=== PATIENT | female | born 1980 | race Caucasian/White ===

== ENCOUNTER → 2023-10-18 08:45 | Outpatient (REF) | payer OTHER, SELFPAY | LOC: HWRAD 08:45 | PROVIDERS: ATTENDING PHYSICIAN Physician Assistant Medical; FAMILY PHYSICIAN Student in an Organized Health Care Education/Training Program; REFERRING PHYSICIAN Obstetrics & Gynecology | DX: R10.2 Pelvic and perineal pain (principal); R32 Unspecified urinary incontinence | CPT/HCPCS: 76830; 76856; 76857 ==

== ENCOUNTER → 2023-11-08 10:49 | Outpatient (REF) | payer OTHER, SELFPAY | LOC: MRI 3T 10:49 | PROVIDERS: ATTENDING PHYSICIAN Surgery; FAMILY PHYSICIAN Student in an Organized Health Care Education/Training Program | DX: R92.8 Other abnormal and inconclusive findings on diagnostic imaging of breast (principal) | CPT/HCPCS: 77049; A9585 ==

== ENCOUNTER → 2023-11-15 06:21 | Day surgery (SDC) | payer OTHER, SELFPAY | LOC: GI 06:21 | PROVIDERS: ATTENDING PHYSICIAN Internal Medicine Gastroenterology | DX: Z12.11 Encounter for screening for malignant neoplasm of colon (principal); Z86.010 Personal history of colon polyps; K57.30 Diverticulosis of large intestine without perforation or abscess without bleeding; D12.3 Benign neoplasm of transverse colon; D12.5 Benign neoplasm of sigmoid colon | CPT/HCPCS: 45385; 88305 ==

== ENCOUNTER → 2024-01-16 09:34 | Outpatient (REF) | payer OTHER, SELFPAY | LOC: HWWDC 09:34 | PROVIDERS: ATTENDING PHYSICIAN Surgery; FAMILY PHYSICIAN Student in an Organized Health Care Education/Training Program | DX: Z12.31 Encounter for screening mammogram for malignant neoplasm of breast (principal) | CPT/HCPCS: 77063; 77067 ==

== ENCOUNTER → 2024-02-14 08:59 | Outpatient (REF) | payer OTHER, SELFPAY | LOC: HWRAD 08:59 | PROVIDERS: ATTENDING PHYSICIAN Internal Medicine Endocrinology, Diabetes & Metabolism; FAMILY PHYSICIAN Student in an Organized Health Care Education/Training Program | DX: E04.2 Nontoxic multinodular goiter (principal) | CPT/HCPCS: 76536 ==

== ENCOUNTER → 2024-06-01 08:45 | Outpatient (REF) | payer OTHER, SELFPAY | LOC: HWRAD 08:45 | PROVIDERS: ATTENDING PHYSICIAN Internal Medicine Gastroenterology; FAMILY PHYSICIAN Student in an Organized Health Care Education/Training Program | DX: K59.09 Other constipation (principal) | CPT/HCPCS: 74018 ==

== ENCOUNTER → 2024-07-17 09:21 | Outpatient (REF) | payer OTHER, SELFPAY | LOC: WDC 09:21 | PROVIDERS: ATTENDING PHYSICIAN Surgery; FAMILY PHYSICIAN Student in an Organized Health Care Education/Training Program | DX: N64.4 Mastodynia (principal); R59.0 Localized enlarged lymph nodes | CPT/HCPCS: 76642 ==

== ENCOUNTER 2024-08-24 08:09 | Emergency (ER) | payer OTHER, SELFPAY ==
[2024-08-24 08:14] VITALS: BP 152/100
[2024-08-24 08:16] VITALS: BP 152/100
--- NOTE | 2024-08-24 08:28 | ED.GENMED ---
History of Present Illness
General
Chief Complaint: Abdominal Pain
Source: patient
Exam Limitations: none
Time Seen by Provider: 08/24/24 08:26
Nursing documentation reviewed up to this point in time: agreed with
History of Present Illness
History of Present Illness:
The patient is a pleasant 44-year-old female who comes in with complaints of gradual onset of left chest wall pain, right under her left breast. Patient reports that she noticed the pain 4 days ago but it has only gotten worse with time. Patient
reports that the pain becomes severe when she coughs and sneezes. She denies injury and rash. Patient reports that the pain seems to shoot up towards her left armpit. Patient reports that she was evaluated for this at urgent care and underwent an
x-ray, and was told that it may be due to constipation. Patient denies nausea and vomiting. She denies fever. She denies a history of PE and DVT.
Past History
Past History
ED Past Medical History: GERD, Hypothyroidism and Other (IBS)
ED Past Surgical History: None
Social History
Tobacco: Non-smoker
Alcohol: Occasional
Drug: None
Personal:
Living: with family
Employment: Employed
Family History
Family History: Other (Noncontributory)
Review of Systems
Review of Systems
Allergies reviewed?: Yes
All Other Systems: ROS reviewed and negative except as documented in HPI and ROS
Constitutional: Reports no symptoms
EENT: Reports no symptoms
Respiratory: Reports no symptoms
Cardiac: Reports chest pain (left sided chest wall pain)
ABD/GI: Reports abdominal pain
: Reports no symptoms
Musculoskeletal: Reports no symptoms
Skin: Reports no symptoms
Neurological: Reports no symptoms
Endocrine: Reports no symptoms
Hematologic/Lymphatic: Reports no symptoms
Psychiatric: Reports no symptoms
Phy Exam
Physical Exam
Physical Exam:
Physical Exam
General: no apparent distress, not acutely ill
Neck: supple. no meningeal signs. normal psoterior pharynx
Heart: s1/s2 regular rate and rhythm, no murmur. equal radial pulses.
Lungs: no acute respiratory distress. clear bilaterally
Abdomen: normal bowel sounds. Left upper quadrant tenderness, just under her left breast area. No pulsatile mass. No rebound or guarding
Neuro: alert and oriented. no focal neurological deficits
Skin: no rash
Psychiatric: well kept. interactive and cooperative
Extremities: no edema. no calf tenderness. negative homans. good distal pulses
Course
Orders/Labs/Results
Orders:
Orders
08/24/24 08:20
EKG [Electrocardiogram (*1)] Urgent
Reason for Study: Abdominal Pain
EKG- Treatment ONCE
08/24/24 08:39
Test Result ONCE
08/24/24 08:42
Diphenhydramine [Benadryl] 50 mg IV NOW STA
Ketorolac [Toradol] 30 mg IV NOW STA
08/24/24 08:44
Hydrocortisone Sod Succinate [Solu-Cortef] 200 mg IV NOW STA
08/24/24 08:48
CT Pe/abd/pel W Urgent
Reason For Exam: pleuritic L chest pain/LUQ pain, order combined
08/24/24 08:51
Complete Blood Count/With Diff Urgent
Comprehensive Metabolic Panel Urgent
HCG, Serum Qualitative Screen Urgent
Lipase Urgent
08/24/24 10:11
Urinalysis Reflex To Culture Urgent
Date Specimen was Collected: 08/24/24
Time Specimen was Collected: 09:07
Abnormal Lab Results
08/24/24
08:51
RBC 4.17 L 10^6/uL
(4.20-5.40)
MCHC 32.8 L g/dL
(33.0-37.0)
Carbon Dioxide 31 H mmol/L
(22-30)
08/24/24 08:51
08/24/24 08:51
Vital Signs
Initial and Last Documented VS:
Initial Vital Signs
Temp Pulse Resp BP Pulse Ox
98.4 F 84 16 152/100 100
08/24/24 08:14 08/24/24 08:14 08/24/24 08:14 08/24/24 08:14 08/24/24 08:14
Last Documented Vital Signs
Temp Pulse Resp BP Pulse Ox
98.2 F 91 16 118/71 97
08/24/24 08:16 08/24/24 08:16 08/24/24 08:16 08/24/24 11:00 08/24/24 11:30
MDM/Problems Addressed
Differential Diagnosis Includes:
Acute pancreatitis, pulmonary embolism, acute gastritis
MDM/Problems Addressed:
Patient presents with acute left upper quadrant pain
Acute Exacerbation and/or Progression of Chronic Illness:
Patient is acutely hypertensive, likely due to anxiety and pain
Acute Exacerbation and/or Progression of Chronic Illness: HTN
*Radiology
Radiology exam reviewed: radiology read reviewed
*Pulse Oximetry
Patient hypoxic: no
*EKG
Interpreted by ED Provider?: Yes
Interpretation: normal
Comparison EKG: no comparison EKG present
Rate: normal
Rhythm: sinus
Aiken: normal axis
Interval: normal interval
QRS Pattern: normal QRS
Ischemia: no ischemia
*Critical Care Note
Total Time (30-74mins, 75-104mins- exclusive of procedures): Not Applicable
Data Reviewed
Review of Other/Old Records Reveals: Testing (Colonoscopy 2019 shows polyps)
Update Note
Update Note:
There is no sign of acute coronary syndrome, PE, aortic dissection or pneumonia. Patient's pain may be musculoskeletal. Toradol helped with her pain.
ED Attending Note
-
Portions of this chart may have been created with voice recognition software.� Occasional wrong word or��sound alike� substitutions may have occurred due to the inherent limitations of voice recognition software.
Discharge Plan
Departure
Patient Disposition: Home (Routine Discharge)
Date of Disposition: 08/24/24
Time of Disposition: 11:49
Patient with high blood pressure during this ER visit?: No
Condition: Good
Covid-19: Not Applicable
Discharge Problem:
Left-sided chest wall pain
Instructions: Muscle Strain ED
Prescriptions:
New
ketorolac 10 mg tablet
10 mg PO TID PRN (Reason: Pain) Qty: 8 0RF
No Action
multivitamin 1 EACH tablet
1 ea PO DAILY
acetaminophen [Tylenol Extra Strength] 500 mg Tablet
1,000 mg PO PRN PRN (Reason: pain)
ibuprofen 200 mg Tablet
200 - 400 mg PO PRN PRN (Reason: pain)
bupropion HCl [Wellbutrin XL] 150 mg Tablet Extended Release 24 Hr
150 mg PO DAILY
duloxetine 60 mg Capsule,Delayed Release(Dr/Ec)
60 mg PO DAILY
biotin 10,000 mcg
1 tab PO DAILY
Referrals:
Yashira Redding MD [Family Provider] -
Activity Restrictions/Additional Instructions:
Take Toradol every 8 hours as needed for pain. Please follow-up with your doctor in 3 days if your pain is still significant. Do not combine the Toradol with any other NSAIDs such as ibuprofen, Motrin, Aleve or Advil.
Interventions
Interventions:
*Risk Screen - Suicide Last Done: 08/24/24 08:16
*General Assessment Last Done: 08/24/24 08:16
*Neglect/Abuse Screening Last Done: 08/24/24 08:16
ED- Fall Risk Assessment Last Done: 08/24/24 10:19
*ED COVID-19 Vaccine History Last Done: 08/24/24 08:49
OX-Gwhacy-Xhhqkfztwy Assessment Last Done: 08/24/24 08:49
Discharge Date and Time
Print Language: CHADIAN
[2024-08-24 08:49] VITALS: BMI 40.5
[2024-08-24] MEDS: SOLU-CORTEF 200 MG IV (09:01)
[2024-08-24] MEDS: TORADOL 30 MG IV (09:01)
[2024-08-24] MEDS: BENADRYL 50 MG IV (09:01)
[2024-08-24 09:02] VITALS: BP 116/72
[2024-08-24 09:06] LABS: % Basophils 0.6 % (0-2); % Eosinophils 2.1 % (0-6); % Immature Granulocytes 0.2 % (0-0.5); % Lymphocytes 22.1 % (20.5-51.1); % Monocytes 8.2 % (1.7-9.3); % Neutrophils 66.8 % (42.2-75.2); Absolute Eosinophils 0.1 10^3/uL (0-0.7); Absolute Lymphocytes 1.4 10^3/uL (1.2-3.4); Absolute Monocytes 0.5 10^3/uL (0.1-0.6); Absolute Neutrophils 4.2 10^3/uL (1.4-6.5); Hematocrit 38.7 % (37.0-47.0); Hemoglobin 12.7 g/dL (12.0-16.0); Mean Corp Hgb Conc. 32.8 g/dL (33.0-37.0); Mean Corpuscular Hgb 30.5 pg (27.0-31.0); Mean Corpuscular Volume 92.8 fL (81.0-99.0); Mean Platelet Volume 10.2 fL (7.4-10.4); Nucleated Red Blood Cells % 0 %; Platelet Count 247 10^3/uL (130-400); Red Blood Cell Count 4.17 10^6/uL (4.20-5.40); Red Cell Dist. Width 12.9 % (11.5-14.5); White Blood Cell Count 6.2 10^3/uL (4.8-10.8)
[2024-08-24 09:22] LABS: HCG, Serum Qualitative Screen Negative
[2024-08-24 09:23] LABS: ALT (SGPT) 17 U/L (0-35); AST (SGOT) 23 U/L (14-36); Albumin 4.1 g/dl (3.5-5.0); Alkaline Phosphatase 86 U/L (38-126); Blood Urea Nitrogen 8 mg/dl (7-17); Carbon Dioxide 31 mmol/L (22-30); Chloride 103 mmol/L (98-107); Estimated Creatinine Clearance > 125 ml/min; Glucose 96 mg/dl (70-99); Lipase 58 U/L (23-300); Potassium 4.2 mmol/L (3.5-5.1); Sodium 139 mmol/L (135-145); Total Bilirubin 0.4 mg/dl (0.2-1.3); Total Protein 7.1 g/dl (6.3-8.2); eGFR > 60.00
[2024-08-24 10:10] VITALS: BP 129/56
[2024-08-24 10:48] LABS: Urine Albumin Negative (Neg - Trace); Urine Bilirubin Negative (Negative); Urine Character Clear (Clear); Urine Color Yellow; Urine Glucose Negative (Negative); Urine Ketone Negative (Negative); Urine Leukocyte Negative (Negative); Urine Nitrite Negative (Negative); Urine Occult Blood Negative (Negative); Urine Urobilinogen Negative (Neg - 1+)
[2024-08-24 11:00] VITALS: BP 118/71
== END 2024-08-24 12:01 | disposition home or self-care (01) ==
LOC: EMR 08:09
PROVIDERS: EMERGENCY PHYSICIAN Emergency Medicine; FAMILY PHYSICIAN Student in an Organized Health Care Education/Training Program
DX: R07.89 Other chest pain (principal)
CPT/HCPCS: 99285; 96374; 96375 ×2; 71275; 74177; 80053; 81003; 83690; 84703; 85025; 93005; Q9967

== ENCOUNTER 2024-08-29 04:04 | Observation (INO) | payer OTHER, SELFPAY ==
[2024-08-28 19:03] VITALS: BP 154/94
[2024-08-28 19:21] LABS: % Basophils 0.5 % (0-2); % Eosinophils 1.8 % (0-6); % Immature Granulocytes 0.2 % (0-0.5); % Lymphocytes 19.5 % (20.5-51.1); % Monocytes 7.5 % (1.7-9.3); % Neutrophils 70.5 % (42.2-75.2); Absolute Eosinophils 0.2 10^3/uL (0-0.7); Absolute Lymphocytes 1.7 10^3/uL (1.2-3.4); Absolute Monocytes 0.7 10^3/uL (0.1-0.6); Absolute Neutrophils 6.2 10^3/uL (1.4-6.5); Hematocrit 35.8 % (37.0-47.0); Hemoglobin 11.6 g/dL (12.0-16.0); Mean Corp Hgb Conc. 32.4 g/dL (33.0-37.0); Mean Corpuscular Hgb 29.7 pg (27.0-31.0); Mean Corpuscular Volume 91.8 fL (81.0-99.0); Mean Platelet Volume 9.8 fL (7.4-10.4); Nucleated Red Blood Cells % 0 %; Platelet Count 244 10^3/uL (130-400); Red Cell Dist. Width 12.9 % (11.5-14.5); White Blood Cell Count 8.8 10^3/uL (4.8-10.8)
[2024-08-28 19:34] LABS: HCG, Serum Qualitative Screen Negative
[2024-08-28 19:37] LABS: ALT (SGPT) 17 U/L (0-35); AST (SGOT) 23 U/L (14-36); Albumin 4.1 g/dl (3.5-5.0); Alkaline Phosphatase 87 U/L (38-126); Blood Urea Nitrogen 9 mg/dl (7-17); Calcium 8.8 mg/dl (8.4-10.2); Carbon Dioxide 28 mmol/L (22-30); Chloride 102 mmol/L (98-107); Glucose 96 mg/dl (70-99); Potassium 4.1 mmol/L (3.5-5.1); Sodium 136 mmol/L (135-145); Total Bilirubin 0.4 mg/dl (0.2-1.3); Total Protein 6.9 g/dl (6.3-8.2); eGFR > 60.00
[2024-08-28 22:15] VITALS: BMI 43.7
[2024-08-28 23:00] VITALS: BP 123/81
--- NOTE | 2024-08-28 23:19 | ED.GENMED ---
History of Present Illness
<REBECCA Arriaga - Last Filed: 08/28/24 23:53>
General
Chief Complaint: Abdominal Pain
Source: patient
Time Seen by Provider: 08/28/24 23:02
Nursing documentation reviewed up to this point in time: agreed with
History of Present Illness
History of Present Illness:
Pt is a 44 yo F who presents to the ED for LUQ abdominal pain. Pt states that the abdominal pain began on 08/21 and she went to urgent care where she got an abdominal X-ray and she states that they thought it was due to constipation. Pt then came to
the ED on 08/24 for the continued pain and had an abdominal CT performed. Pt states that she then followed up with her GI doctor and yesterday drank magnesium citrate and had an enema per her GI recommendation. She states she had watery stool after
having the enema. Pt states that she also had a follow up with her PCP yesterday, per the PCP patient had an abdominal X-ray performed this afternoon and patient states that she was told to come to the ED following the X-ray.
Pt states that the abdominal pain has been present since onset. Pt states that the pain is located in the LUQ and radiates around her left back. She explains that the pain is severe and worse when she coughs, sneezes, and laughs. She reports that
she can not lay on her sides due to the pain. Pt also states that she noticed increased swelling in her lower extremities b/l that started yesterday. Pt denies N/V/D, fever, chills, blood in stool, leg pain, shortness of breath. Pt denies any
injury, trauma, or prior abdominal surgery.
Past History
<REBECCA Arriaga - Last Filed: 08/28/24 23:53>
Past History
ED Past Medical History: GERD, Hypothyroidism and Other (IBS)
ED Past Surgical History: None
Social History
Tobacco: Non-smoker
Alcohol: Occasional
Drug: None
Personal:
Living: with family
Employment: Employed
Family History
Family History: Other (Noncontributory)
Review of Systems
<REBECCA Arriaga - Last Filed: 08/28/24 23:53>
Review of Systems
Allergies reviewed?: Yes
Constitutional: Reports no symptoms
Respiratory: Reports no symptoms
Cardiac: Reports no symptoms
ABD/GI: Reports abdominal pain (LUQ)
: Reports no symptoms
Phy Exam
<REBECCA Arriaga - Last Filed: 08/28/24 23:53>
General Physical Exam
General Presentation: well appearing and no apparent distress
General age: appears stated age
General Skin: warm
General Habitus: normal
General Mental: alert
General Hydration: appears well hydrated
Cardiovascular Exam
Cardiovascular Exam: regular rate/rhythm
Pulmonary Exam
Pulmonary Exam: lungs clear
Gastrointestinal Exam
Gastrointestinal Exam: soft, non distended and abnormal bowel sounds (hypoactive)
Palpation: left upper quadrant: Minimal tenderness, left lower quadrant: No tenderness, right upper quadrant: No tenderness and right lower quadrant: No tenderness
Course
<Farhana Roach [facility] - Last Filed: 08/28/24 23:53>
Orders/Labs/Results
Orders:
Orders
08/28/24 19:08
Test Result ONCE
08/28/24 19:12
Complete Blood Count/With Diff Urgent
Comprehensive Metabolic Panel Urgent
HCG, Serum Qualitative Screen Urgent
08/29/24 00:40
Glycerin [Glycerin Pediatric Suppository] 1 supp RECTAL NOW STA
08/29/24 00:45
Lactic Acid Q4H
Comment: CANCEL 2nd LACTIC ACID IF 1st LACTIC ACID IS LESS THAN 2
Glycerin [Glycerin Suppository Adult] 1 supp .ROUTE .STK-MED ONE
08/29/24 04:45
Lactic Acid Q4H
Comment: CANCEL 2nd LACTIC ACID IF 1st LACTIC ACID IS LESS THAN 2
Abnormal Lab Results
08/28/24
19:12
RBC 3.90 L 10^6/uL
(4.20-5.40)
Hgb 11.6 L g/dL
(12.0-16.0)
Hct 35.8 L %
(37.0-47.0)
MCHC 32.4 L g/dL
(33.0-37.0)
Absolute Monos (auto) 0.7 H 10^3/uL
(0.1-0.6)
Lymphocytes % 19.5 L %
(20.5-51.1)
08/28/24 19:12
08/28/24 19:12
Vital Signs
Initial and Last Documented VS:
Initial Vital Signs
Temp Pulse Resp BP Pulse Ox
98.2 F 90 20 154/94 100
08/28/24 19:03 08/28/24 19:03 08/28/24 19:03 08/28/24 19:03 08/28/24 19:03
Last Documented Vital Signs
Temp Pulse Resp BP Pulse Ox
98.2 F 75 20 123/81 98
08/28/24 19:03 08/28/24 23:38 08/28/24 19:03 08/28/24 23:00 08/28/24 23:45
Froylanlt;Avelino Martinez, DO - Last Filed: 08/29/24 00:50>
Orders/Labs/Results
Orders:
Orders
08/28/24 19:08
Test Result ONCE
08/28/24 19:12
Complete Blood Count/With Diff Urgent
Comprehensive Metabolic Panel Urgent
HCG, Serum Qualitative Screen Urgent
08/29/24 00:40
Glycerin [Glycerin Pediatric Suppository] 1 supp RECTAL NOW STA
08/29/24 00:45
Lactic Acid Q4H
Comment: CANCEL 2nd LACTIC ACID IF 1st LACTIC ACID IS LESS THAN 2
Glycerin [Glycerin Suppository Adult] 1 supp .ROUTE .STK-MED ONE
08/29/24 04:45
Lactic Acid Q4H
Comment: CANCEL 2nd LACTIC ACID IF 1st LACTIC ACID IS LESS THAN 2
Abnormal Lab Results
08/28/24
19:12
RBC 3.90 L 10^6/uL
(4.20-5.40)
Hgb 11.6 L g/dL
(12.0-16.0)
Hct 35.8 L %
(37.0-47.0)
MCHC 32.4 L g/dL
(33.0-37.0)
Absolute Monos (auto) 0.7 H 10^3/uL
(0.1-0.6)
Lymphocytes % 19.5 L %
(20.5-51.1)
08/28/24 19:12
08/28/24 19:12
Vital Signs
Initial and Last Documented VS:
Initial Vital Signs
Temp Pulse Resp BP Pulse Ox
98.2 F 90 20 154/94 100
08/28/24 19:03 08/28/24 19:03 08/28/24 19:03 08/28/24 19:03 08/28/24 19:03
Last Documented Vital Signs
Temp Pulse Resp BP Pulse Ox
98.2 F 75 20 123/81 98
08/28/24 19:03 08/28/24 23:38 08/28/24 19:03 08/28/24 23:00 08/28/24 23:45
Froylanlt;REBECCA Arriaga - Last Filed: 08/28/24 23:53>
MDM/Problems Addressed
Differential Diagnosis Includes:
Hernia, constipation, volvulus
<REBECCA Arriaga - Last Filed: 08/28/24 23:53>
*Critical Care Note
Total Time (30-74mins, 75-104mins- exclusive of procedures): Not Applicable
ED Attending Note
<REBECCA Arriaga - Last Filed: 08/28/24 23:53>
-
Portions of this chart may have been created with voice recognition software.� Occasional wrong word or��sound alike� substitutions may have occurred due to the inherent limitations of voice recognition software.
<Avelino Martinez DO - Last Filed: 08/29/24 00:50>
ED Attending Note
Patient seen and examined by attending physician: Yes
I performed the substantive portion of visit, reviewed & personally made and approve the management plan that is documented in note by myself or BEL.: Yes
ED Attending Note:
Pleasant 44-year-old female presents the emergency department for left upper quadrant abdominal pain. Patient had an abdominal x-ray at an urgent care which was deemed constipation. She came to the emergency department several days later and had a
CAT scan which did not see any major abnormalities. She followed up with GI and had an enema. She states that she had passed watery stools. She also followed up with her primary care provider yesterday and PCP ordered an x-ray for the emergency
department here. Patient has had abdominal pain ever since. Denies fever, chills, nausea or vomiting. Reports no diarrhea currently. Patient was seen in conjunction with the PA student. I have reviewed and agree with the history and treatment
plan presented. On my independent physical exam, patient is awake, alert, and oriented x3. Heart is regular rate rhythm. Lungs clear to auscultation bilaterally without wheezes rales or rhonchi. Abdomen soft slightly distended with tenderness to
palpation in the left upper quadrant. Good bowel sounds heard. Moves all 4 extremities.
Was seen in urgent care last week x-ray showed constipation. Then went to the ER and had a normal CAT scan. Discharged home on Tuesday. Pain continued so she went to Russ's office today and had an enema with no relief. Discharged from their and
went to her family doctor this afternoon and ordered an x-ray of the abdomen. Radiologist requested that she come into the emergency department for evaluation. Here she is still in pain. She is getting IV Tylenol. I spoke with Ronal Mae via [place]
text and telephone and he was befuddled by the x-ray taken as an outpatient today in the system. He recommended glycerin suppositories every 8 hours with admission. He will see the patient in the morning.
Discharge Plan
Departure
Patient Disposition: Admit
Date of Disposition: 08/29/24
Time of Disposition: 00:49
Admit to: Telemetry
Presentation/result/management discussed w/ accepting MD/DO: Hospitalist
Discharge Problem:
Abdominal pain
Prescriptions:
No Action
multivitamin 1 EACH tablet
1 ea PO DAILY
acetaminophen [Tylenol Extra Strength] 500 mg Tablet
1,000 mg PO PRN PRN (Reason: pain)
ibuprofen 200 mg Tablet
200 - 400 mg PO PRN PRN (Reason: pain)
bupropion HCl [Wellbutrin XL] 150 mg Tablet Extended Release 24 Hr
150 mg PO DAILY
duloxetine 60 mg Capsule,Delayed Release(Dr/Ec)
60 mg PO DAILY
biotin 10,000 mcg
1 tab PO DAILY
ketorolac 10 mg tablet
10 mg PO TID PRN (Reason: Pain) Qty: 8 0RF
Referrals:
Yashira Redding MD [Family Provider] -
Interventions
Interventions:
*Risk Screen - Suicide Last Done: 08/28/24 19:03
*General Assessment Last Done: 08/28/24 22:17
*Neglect/Abuse Screening Last Done: 08/28/24 19:03
ED- Fall Risk Assessment Last Done: 08/28/24 22:18
*ED COVID-19 Vaccine History Last Done: 08/28/24 22:17
YN-Kzltbk-Xpwejjyxva Assessment Last Done: 08/28/24 22:18
Discharge Date and Time
Print Language: FAROESE
[2024-08-29] VITALS: BP 122/78
[2024-08-29] MEDS: GLYCERIN SUPPOSITORY ADULT 1 SUPP RECTAL (01:20)
[2024-08-29] MEDS: OFIRMEV 100 IV (01:38)
[2024-08-29 02:05] LABS: Lactic Acid 0.6 mmol/L (0.7-2.0)
--- NOTE | 2024-08-29 03:56 | HPS.HSE ---
Family Physician
-
Family Physician: Yashira Redding MD
Chief Complaint
-
Abd pain
History of Present Illness
Patient is a 44y F with PMH significant for IBS, migraine headaches and depression who presents to ED complaining of abdominal pain. Patient states that she had her last normal bowel movement one week ago. Shortly thereafter, she noted pain in
the LUQ / L lower chest area. She was seen here in the ED on 08/[address] A/P at that time was unremarkable and patient was discharged on NSAIDs. She states that her symptoms have not improved. Her pain has increased in
frequency and severity since that time. Patient notes that she has passed only very small amounts of liquid stool per rectum. No formed bowel movement. No bloody stools. Poor appetite, but no N/V. No fevers / chills.
Patient was seen in the GI office on Tuesday and advised to take an enema. She did so and felt that her pain increased.
She was seen by her PCP today and an x-ray was ordered. Following the x-ray, patient was advised by Radiology to present to the ED.
At present she is in mild distress due to abdominal pain.
Patient notes that she was started on Nurtec one month ago for migraine treatment. She has taken 15 tabs total in the past month.
No other new / changed medications.
Medical History
Past Medical History
Past Medical History: Reports Other
Additional Past Medical History:
Graves Disease
IBS
Migraine Headaches
Morbid Obesity
Anxiety / Depression
Past Surgical History: Reports Other
Additional Past Surgical History:
Colposcopy
Social History
Tobacco: Non-smoker
Alcohol: None
Drug: None
Family History
Family History: Not pertinent
Allergies / Home Medications
Allergies reflects when Allergies were last updated in [facility].
Home Medications with original date entered in [facility]
Allergy/Medication List:
Allergies
Allergy/AdvReac Type Severity Reaction Status Date / Time
MRI contrast dye Allergy red itchy Uncoded 08/28/24 19:07
eyes,
itchy
throat,
mucous
buildup,
sneezing
Home Medications
multivitamin 1 ea PO DAILY 11/04/17
bupropion HCl 150 mg 24 hr tablet, extended release (Wellbutrin XL) 300 mg PO DAILY 08/25/22
duloxetine 60 mg capsule,delayed release 60 mg PO DAILY 08/25/22
ibuprofen 200 mg tablet 200 - 400 mg PO PRN PRN pain 08/25/22
Propanolol 20 mg PO DAILY 08/29/24
cetirizine 10 mg tablet (Zyrtec) 10 mg PO DAILY 08/29/24
rimegepant 75 mg disintegrating tablet (Nurtec ODT) 75 mg PO ONCE PRN migraines 08/29/24
Review of Systems
-
History Source: Patient
A 12 point ROS was completed and negative except as noted: Yes
Constitutional: Denies Fever or Chills
Respiratory: Denies Cough or Trouble Breathing
Cardiac: Denies Chest Pain or Palpitations
Abdomen/GI: Reports Abdominal Pain and Anorexia; Denies Nausea, Vomiting, Diarrhea or Bloody Stools
: Denies Dysuria or Frequency
Musculoskeletal: Denies Joint Pain or Edema
Neurological: Reports Headache; Denies Dizzy
Psych: Denies Depression or Anxiety
Physical Exam
Vital Signs
Vital Signs
Temp Pulse Resp BP Pulse Ox
98.2 F 75 20 122/78 99
08/28/24 19:03 08/29/24 02:15 08/29/24 02:15 08/29/24 00:00 08/29/24 02:15
Physical Exam
General: Other (44y F in mild distress due to pain.)
HEENT: Moist mucous membranes, PERRLA and Other (Thick neck.)
Respiratory: Clear; No Wheezes, Rales or Rhonchi
Cardiac: S1/S2 and Regular Rhythm; No Murmur
GI: Soft, Non Tender, Non Distended and Other (Bowel sounds are markedly diminished.)
Musculoskeletal: No Clubbing, No Cyanosis and No Edema
Neuro: AO x 3
Laboratory Results
-
08/28/24 19:12
08/28/24 19:12
Laboratory Results
Lactic Acid Cancelled 08/29/24 04:45
Total Bilirubin 0.4 mg/dl (0.2-1.3) 08/28/24 19:12
AST 23 U/L (14-36) 08/28/24 19:12
ALT 17 U/L (0-35) 08/28/24 19:12
Alkaline Phosphatase 87 U/L (38-126) 08/28/24 19:12
Impression/Plan
-
A/P: Patient is a 44y F with PMH significant for anxiety / depression, IBS and migraines who presents to ED complaining of about one week of progressive abdominal pain.
Intractable Abdominal Pain
Abnormal X-Ray
- Observe overnight for further evaluation and treatment.
- Outpatient x-ray with atypical gas pattern with large gas bubble seen in colon in the LUQ.
- No evident obstruction, perforation, etc.
- ? ileus with markedly decreased bowel sounds.
- Continue supportive care with pain control, IVFs, etc.
- Glycerin suppositories q8h per GI recommendations.
- GI eval in the AM for additional recommendations.
- Hold Nurtec as this is newest medication.
- Avoid narcotic medication if possible.
- Follow for clinical improvement.
Anxiety / Depression
IBS
Migraine Headaches
- Continue bupropion / duloxetine.
- Continue propranolol.
- Hold Nurtec as noted above.
Morbid Obesity due to excess calories
- Affects all aspects of care.
- Encourage healthy diet and increased exercise with goal of weight loss.
DVT Prophylaxis: SCDs
Code Status: Full
--- NOTE | 2024-08-29 06:10 | TRANSFER ---
pt arrived from ED via stretcher accompanied by ED RN. pt ambulated from stretcher to bed. pt is AAOx3, VSS. call rosas within reach, pt resting in bed at present. POC ongoing.
[2024-08-29 06:15] VITALS: BP 144/92; BMI 42.9
[2024-08-29 06:16] LABS: Hemoglobin 11.4 g/dL (12.0-16.0); Mean Corp Hgb Conc. 32.6 g/dL (33.0-37.0); Mean Corpuscular Hgb 30.4 pg (27.0-31.0); Mean Corpuscular Volume 93.3 fL (81.0-99.0); Mean Platelet Volume 10.2 fL (7.4-10.4); Platelet Count 204 10^3/uL (130-400); Red Blood Cell Count 3.75 10^6/uL (4.20-5.40); Red Cell Dist. Width 12.8 % (11.5-14.5); White Blood Cell Count 6.1 10^3/uL (4.8-10.8)
[2024-08-29] MEDS: NSS 1000 IV ×2 (06:17→18:26)
[2024-08-29] MEDS: TORADOL 15 MG IV ×3 (06:30→21:44)
[2024-08-29 06:38] LABS: Blood Urea Nitrogen 7 mg/dl (7-17); Calcium 8.4 mg/dl (8.4-10.2); Carbon Dioxide 23 mmol/L (22-30); Chloride 106 mmol/L (98-107); Estimated Creatinine Clearance > 125 ml/min; Glucose 99 mg/dl (70-99); Sodium 137 mmol/L (135-145); eGFR > 60.00
[2024-08-29 07:10] LABS: TSH Reflex To Free T4 2.14 uIU/ml (0.47-4.68)
--- NOTE | 2024-08-29 07:49 | CON.GI ---
Addendum entered and electronically signed by Johan Mae DO 08/29/24 13:58:
I saw and examined the patient.
The BENEFITS DIRECTOR's note was reviewed and I agree with the note.
Comment: Ms Robles is a 44 y.o female with past medical history of chronic migraine headaches, morbid obesity, Graves disease, and IBS who presented to the ED with worsening left-sided upper abdominal pain along with worsening constipation as an
outpatient. Previously seen by her PCP where she was advised to take mag citrate pills. A previous CT Abd/pelvis w/out oral contrast was grossly unrevealing without any bowel wall dilatation except for increased stool burden. She eventually followed
with her primary GI (Dr. Solano) where she was given advised to take a fleet enema along with oral mag citrate for a bowel purge along with eventually starting Linzess. Unfortunately, she developed worsening abdominal discomfort where she was
advised to come back to the ED where a KUB revealed significant gaseous distention of 20cm segment of bowel in Left upper quadrant up to 7 cm. Fortunately she is without any fevers/chills or leukocytosis or other nausea/vomiting and abdominal exam
reassuring this AM. Suspect her previous gaseous distension and abdominal pain likely in setting of severe constipation versus colonic ileus. She was recently started on Nurtec, however upon review on [facility] and [employer]to[facility] this has not been
associated with any constipation. Much less likely an obstructive process given her symptoms. However, given her persistent abdominal pain and marked dilation of her right-sided colon would benefit from repeat cross-sectional imaging with CT with
oral contrast given her previous CT was grossly limited.
Recommendations:
- Keep NPO pending CT imaging
- Continue IV to maintain euvolemia, maintain K > 4.0 and Mg > 2.0 to promote bowel function
- Ordered CT Abd/pelvis with oral contrast, will f/u later today
- Would continue suppositories from below q 8 hrs for now
- Defer from starting miralax or other laxatives from above pending CT imaging
- Avoid all opioids as not to worsen constipation or further opioid-induced bowel dysmotility
- Encourage frequent ambulation, OOB
- Rest of care as outlined below
GI team will continue to follow. Please contact with any questions or concerns.
Original Note:
Consultation
-
Date/Time Consultation Requested: 08/29/24 05
Date/Time Consultation Performed: 08/29/24 0740
Requesting Provider: Chuck Kimbrough DO
Performing Provider: BELLA Bolden Bryan Stone, DO
Reason for Consultation: abdominal pain
Medical History
Chief Complaint / HPI
Chief Complaint: left sided abdominal pain
History of Present Illness:
Pt is a 44yo with hx IBS, GERD, obesity, migraines, graves disease, anxiety/depression with onset of left sided pain. She initially went to urgent care last week with 10/10 chest wall and under breast pain into LUQ with noted constipation. She
took mag citrate pills on return home and Tuesday persisted with pain and was seen in ER. She completed CT with IV contrast contrast only PE/A/p with no PE borderline HM, limited Eval for GI tract without oral contrast. She was given
Ketorolac and saw Dr. Solano on Tuesday. She was recommended fleet enema and mag citrate along with rectal manometry and Linzess was added.She did take enema and mag citrate after seen with + liquid stools and did not start Linzess yet. She
saw PCP on Tuesday and referred back to ER with abnormal X ray with gaseous distention of 20cm segment of bowel in Left upper quadrant up to 7 cm and not present several days prior. On return noted with normal WBC, hbg 11.4, stable chemistry but
persistent left sided pain worse with deep breath, cough, sneeze etc.
At this time she admits to hx IBS-C with soft stools every 5 days. She otherwise denies dysphagia, GERD, nausea, vomiting, or rectal bleeding. + family hx colon CA (grandmother), bile duct CA(father), and garcia syndrome(uncle- pt reports neg
testing in past). No hx NSAID use but recent Ketorolac given in ER.
Past Medical History
Past Medical History: GERD, Psychiatric (anxiety/depression) and Other (IBS, migraines, graves disease, obesity)
Past Surgical History: Other (varicose vein lazer surgery)
Social History
Tobacco: Non-Smoker
Alcohol: None
Drug: None
Living: With Family (3 children )
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
Family History
Family History: Other (mother with breast CA, grandmother with colon CA, father with bile duct CA and uncle with garcia syndrome-- pt states neg testing in past )
Allergies / Home Medications
Allergy/AdvReac Type Severity Reaction Status Date / Time
MRI contrast dye Allergy red itchy Uncoded 08/28/24 19:07
eyes,
itchy
throat,
mucous
buildup,
sneezing
�Medication �Instructions �Recorded
multivitamin 1 ea PO DAILY 11/04/17
bupropion HCl 150 mg 24 hr tablet, 300 mg PO DAILY 08/25/22
extended release (Wellbutrin XL)
duloxetine 60 mg capsule,delayed 60 mg PO DAILY 08/25/22
release
ibuprofen 200 mg tablet 200 - 400 mg PO PRN PRN pain 08/25/22
Propanolol 20 mg PO DAILY 08/29/24
cetirizine 10 mg tablet (Zyrtec) 10 mg PO DAILY 08/29/24
rimegepant 75 mg disintegrating 75 mg PO ONCE PRN migraines 08/29/24
tablet (Nurtec ODT)
Review of Systems
-
History Source: Patient
Constitutional: Reports Weight Loss (few lbs in past week)
EENT: Reports No Symptoms
Respiratory: Reports No Symptoms
Abdomen/GI: Reports Abdominal Pain and Constipated
: Reports No Symptoms
Musculoskeletal: Reports No Symptoms
Skin: Reports No Symptoms
Neurological: Reports No Symptoms
Endocrine: Reports No Symptoms
Hematologic/Lymphatic: Reports No Symptoms
Vital Signs
Temp Pulse Resp BP Pulse Ox
97.5 F 81 19 144/92 98
08/29/24 06:15 08/29/24 06:15 08/29/24 06:15 08/29/24 06:15 08/29/24 06:15
Physical Exam
Exam
General: Well Developed, Well Nourished and No Apparent Distress
HEENT: Normocephalic and Anicteric
Respiratory: Clear
Cardiac: Regular Rhythm
GI: Soft, Non Distended and Tender (LUQ under breast)
Musculoskeletal: No Clubbing and No Cyanosis
Skin: Warm and Dry
Neuro: Awake, Alert and AO x 3
Psych: Calm
Results
WBC 6.1 10^3/uL (4.8-10.8) 08/29/24 06:01
Hgb 11.4 g/dL (12.0-16.0) L 08/29/24 06:01
Hct 35.0 % (37.0-47.0) L 08/29/24 06:01
MCV 93.3 fL (81.0-99.0) 08/29/24 06:01
Plt Count 204 10^3/uL (130-400) 08/29/24 06:01
Absolute Neuts (auto) 6.2 10^3/uL (1.4-6.5) 08/28/24 19:12
Sodium 137 mmol/L (135-145) 08/29/24 06:01
Potassium 4.0 mmol/L (3.5-5.1) 08/29/24 06:01
Chloride 106 mmol/L (98-107) 08/29/24 06:01
Carbon Dioxide 23 mmol/L (22-30) 08/29/24 06:01
BUN 7 mg/dl (7-17) 08/29/24 06:01
Creatinine 0.6 mg/dL (0.6-1.0) 08/29/24 06:01
Calcium 8.4 mg/dl (8.4-10.2) 08/29/24 06:01
Total Bilirubin 0.4 mg/dl (0.2-1.3) 08/28/24 19:12
AST 23 U/L (14-36) 08/28/24 19:12
ALT 17 U/L (0-35) 08/28/24 19:12
Alkaline Phosphatase 87 U/L (38-126) 08/28/24 19:12
Diagnostic Image Results:
08/24/24 CT PE/A/p with IV contrast
No evidence of central pulmonary embolism, pneumothorax or pleural effusion.
No acute abnormality seen throughout the abdomen and pelvis.
Borderline hepatomegaly.
Unremarkable appendix.
Limited evaluation of the intestinal tract without oral contrast, without intestinal obstruction or free air.
Small fat only containing umbilical hernia.
08/28/24- Abd X ray
Disproportionate gaseous distention of a 20 cm segment of bowel in the left upper quadrant measuring up to 7 cm, presumably proximal descending colon. This is nonspecific, and was not present on CT examination from 4 days prior.
Prior GI Procedures:
EGD:
Colonoscopy: 11/2023
- Preparation of the colon was inadequate.
- The examined portion of the ileum was normal.
- One 4 mm polyp in the transverse colon, removed with
a cold snare. Resected and retrieved.
- Two 3 to 4 mm polyps in the sigmoid colon, removed
with a cold snare. Resected and retrieved.
- Diverticulosis in the sigmoid colon.
bx TA and SSA-- repeat 2 years
Assessment / Plan
-
Pt is a 44yo with hx IBS, GERD, obesity, migraines, graves disease, anxiety/depression with onset of left sided pain. She initially went to urgent care last week with 10/10 chest wall and under breast pain into LUQ with noted constipation. She
took mag citrate pills on return home and Tuesday persisted with pain and was seen in ER. She completed CT with IV contrast contrast only PE/A/p with no PE borderline HM, limited Eval for GI tract without oral contrast. She was given
Ketorolac and saw Dr. Solano on Tuesday. She was recommended fleet enema and mag citrate along with rectal manometry and Linzess was added.She did take enema and mag citrate after seen with + liquid stools and did not start Linzess yet. She
saw PCP on Tuesday and referred back to ER with abnormal X ray with gaseous distention of 20cm segment of bowel in Left upper quadrant up to 7 cm and not present several days prior. On return noted with normal WBC, hbg 11.4, stable chemistry but
persistent left sided pain worse with deep breath, cough, sneeze etc.
-left sided abdominal/chest pain worse with cough, sneeze etc
-abnormal X ray with gaseous distention of 20cm segment left upper quadrant
-IBS-C
other med problems:
-personal hx colon polyps, family hx colon CA (grandmother), bile duct CA(father), and garcia syndrome(uncle- pt reports neg testing in past)
-GERD
-obesity
-migraines
-graves disease
-anxiety/depression
PLAN:
etiology of pain with left side distention related to colitis, constipation with hx IBS -C with recent bowel prep vs other
will repeat CT with IV and oral contrast as some limitation in last CT with oral contrast
labs stable
follow abdominal exams
hold glycerine suppository for now and consider regiment after CT reviewed
NPO-- consider clears later pending CT results
-cont PPI
OP anal manometry and will need colonoscopy 2025 with family hx colon Ca and limited prep in 2023
pt recently added Nurtec but per [facility] no worsening constipation with use
-
-
Thank you for consultation and allowing me to participate in the patient's care. Please call the operations intelligence superintendent GI physician during the after hours with any questions or concerns.
[2024-08-29 07:52] VITALS: BP 125/77
[2024-08-29] MEDS: PROTONIX IV 40 MG IV (08:50)
[2024-08-29] MEDS: WELLBUTRIN XL (24 hour extended release) 300 MG PO (08:50)
[2024-08-29] MEDS: NSS (PRESERVATIVE FREE) 10 ML IV (08:50)
[2024-08-29] MEDS: INDERAL 20 MG PO (08:50)
[2024-08-29] MEDS: CYMBALTA DELAYED RELEASE 60 MG PO (08:50)
--- NOTE | 2024-08-29 09:23 | W.PN.UPDATE ---
Update Note
Progress Note Update
Nonbillable addendum (H&P dated today 4 AM)
admitted for LUQ pain, constipation - no improvement with outpatient mag citrate OP along with Linzess (but not yet started)
Referred to ER by PCP with xray showing gaseous distention
Reports persistent Left sided pain, worse with breathing, cough, sneeze
no other complaints
CT ordered by GI service, this time with oral + IV contrast
Assessment:
Intractable Abdominal Pain (LUQ/chest as well)
Abnormal X-Ray with gaseous distention 20 cm segment of LUQ
Hx of IBS-C
hx of GERD
- etiology could be infectious vs constipation vs other
- Nurtec reviewed; low GI side effect profile per [facility]
- repeat CT ordered with IV and PO contrast
- follow abdominal exams
- NPO for now, IVF
- pain control, antiemetics
- holding glycerin suppositories pending CT results
- continue PPI
- Eventual anal manometry, repeat C-scope 2025
Anxiety/Depression
Migraine Headaches
- Continue bupropion / duloxetine.
- Continue propranolol.
- Hold Nurtec.
Hx of Graves disease
- Continue propranolol.
Morbid Obesity due to excess calories
- Affects all aspects of care.
- Encourage healthy diet and increased exercise with goal of weight loss.
Mild anemia
- check indices
DVT Prophylaxis: SCDs
Code Status: Full
[2024-08-29] MEDS: OMNIPAQUE 50 ML PO (10:06)
[2024-08-29 10:09] LABS: Iron 88 ug/dl (37-170)
[2024-08-29 10:18] LABS: Percent Saturation 29 % (20-50); Total Iron Binding Capacity 296 ug/dl (265-497)
[2024-08-29 13:08] LABS: Ferritin 8.9 ng/ml (6.24-137)
[2024-08-29] MEDS: ZOFRAN 4 MG IV ×2 (13:37→21:44)
[2024-08-29 13:39] LABS: Folate > 20.0 ng/ml (2.76-20)
[2024-08-29 14:38] LABS: Vitamin B12 308 pg/ml (239-931)
[2024-08-29 15:46] VITALS: BP 130/76
--- NOTE | 2024-08-29 17:22 | PTCARENOTE ---
Received patient this am AAOx3. Pt NPO with IVF infusing without difficulty. Pt was off unit for Ct Abdomen. Pt complained of a migraine and nausea this afternoon. Pt medicated with Toradol and Zofran IV with relief. Pt starting on a Low Residue
Diet. Made patient comfortable. Cont to assess patient status.
[2024-08-29] MEDS: MELATONIN 5 MG PO (20:22)
[2024-08-29 23:30] VITALS: BP 136/81
--- NOTE | 2024-08-30 05:55 | W.PN.GI.CBS2 ---
Today's Communication / Plan
-
Admits complete resolution of previous symptoms and recent CT imaging reassuring without any further colonic dilatation. Needs close outpatient f/u and have messaged her primary Hvac Mechanic as well. Advised starting Linzess 145 mcg today once
she gets home and should continue this on a regular, daily basis given her IBS-C. Rest of care as outlined below.
Assessment / Plan
-
#Abdominal Pain
#Severe Constipation
#IBS-C
Ms. Robles is a 44 y.o female with past medical history of chronic migraine headaches, morbid obesity, Graves disease, and IBS who presented to the ED with worsening left-sided upper abdominal pain along with worsening constipation as an outpatient.
Previously seen by her PCP where she was advised to take mag citrate pills. A previous CT Abd/pelvis w/out oral contrast was grossly unrevealing without any bowel wall dilatation except for increased stool burden. She eventually followed with her
primary GI (Dr. Solano) where she was given advised to take a fleet enema along with oral mag citrate for a bowel purge along with eventually starting Linzess. Unfortunately, she developed worsening abdominal discomfort where she was advised to
come back to the ED where a KUB revealed significant gaseous distention of 20cm segment of bowel in Left upper quadrant up to 7 cm. Fortunately she is without any fevers/chills or leukocytosis or other nausea/vomiting and abdominal exam reassuring
this AM. Suspect her previous gaseous distension and abdominal pain likely in setting of severe constipation versus colonic ileus. She was recently started on Nurtec, however upon review on [facility] and Up[facility]to[facility]Date this has not been associated with
any constipation. Much less likely an obstructive process given her symptoms. However, given her persistent abdominal pain and marked dilation of her right-sided colon would benefit from repeat cross-sectional imaging with CT with oral contrast
given her previous CT was grossly limited.
CT Abd/pelvis w/ IV and oral contrast 08/29 with normal appearing bowel without any bowl dilatation or other evidence of acute pathology in the abdomen or pelvis, incidental 3 cm, fat-containing umbilical hernia. Symptoms most consistent with severe
constipation and IBS-C and previous stool burden seen on prior imaging. Much improved since starting suppositories with relief of previous symptoms. No other concern for an obstructive process or other concern for an ileus with return of bowel
function.
Recommendations:
- May restart regular diet as tolerated
- Discussed findings of previous CT and upon further review with some increased stool burden
- Continue daily home PPI
- Advised starting her Linzess 145 mcg as she was provided samples previously in the GI office
- Instructed her to take Linzess once daily and advised f/u with her primary Hvac Mechanic with Dr. Solano
- OP anal manometry and will need colonoscopy 2025 with family hx colon Ca and limited prep in 2023
- May continue her home Nurtec as per [employer] and Up-to-Date without any side-effects of reported constipation with use
- Encouraged frequent mobilization, ambulation as tolerated
- Rest of care per primary team
GI will sign-off. Please call with any question or concerns. Discussed with primary internal medicine team.
Subjective
Subjective
Date of Service: August 30, 2024
- CT Abd/pelvis w/ IV and oral contrast 08/29 with normal appearing bowel without any bowl dilatation or other evidence of acute pathology in the abdomen or pelvis, incidental 3 cm, fat-containing umbilical hernia
- Otherwise, no acute events overnight
Feeling much improved without any further abdominal pain or discomfort. Has not yet had a BM, but passing significant flatus and belching. No other nausea/vomiting. Discussed findings of her most recent CT scan at bedside this AM.
Objective
Data Reviewed
Laboratory Data:
Laboratory Results
Total Bilirubin 0.4 mg/dl (0.2-1.3) 08/28/24 19:12
AST 23 U/L (14-36) 08/28/24 19:12
ALT 17 U/L (0-35) 08/28/24 19:12
Alkaline Phosphatase 87 U/L (38-126) 08/28/24 19:12
Vital Signs and I&O:
Vital Signs
Temp Pulse Resp BP Pulse Ox
98.1 F 91 20 136/81 98
08/29/24 23:30 08/29/24 23:30 08/29/24 23:30 08/29/24 23:30 08/29/24 23:30
I&O
08/28/24 08/29/24 08/30/24
06:59 06:59 06:59
Intake Total 240 / 240
Balance 240 / 240
Physical Exam
Physical Exam
HEENT: Anicteric and Moist mucous membranes
Cardiology: Normal Sinus Rhythm
Pulmonary: Clear and Other (Normal WOB on room air)
GI: Soft, Non Distended and Non Tender
Extremities: No Edema
Neuro: Non Focal
[2024-08-30 07:40] VITALS: BP 139/91
[2024-08-30] MEDS: NSS (PRESERVATIVE FREE) 10 ML IV (08:24)
[2024-08-30] MEDS: PROTONIX IV 40 MG IV (08:25)
[2024-08-30 08:26] LABS: Hematocrit 37.8 % (37.0-47.0); Hemoglobin 12.4 g/dL (12.0-16.0); Mean Corp Hgb Conc. 32.8 g/dL (33.0-37.0); Mean Corpuscular Hgb 29.9 pg (27.0-31.0); Mean Corpuscular Volume 91.1 fL (81.0-99.0); Mean Platelet Volume 10.5 fL (7.4-10.4); Platelet Count 208 10^3/uL (130-400); Red Blood Cell Count 4.15 10^6/uL (4.20-5.40); Red Cell Dist. Width 12.9 % (11.5-14.5)
[2024-08-30] MEDS: WELLBUTRIN XL (24 hour extended release) 300 MG PO (08:26)
[2024-08-30] MEDS: CYMBALTA DELAYED RELEASE 60 MG PO (08:26)
[2024-08-30] MEDS: INDERAL 20 MG PO (08:27)
[2024-08-30 08:50] LABS: Blood Urea Nitrogen 6 mg/dl (7-17); Calcium 8.4 mg/dl (8.4-10.2); Carbon Dioxide 23 mmol/L (22-30); Chloride 106 mmol/L (98-107); Estimated Creatinine Clearance > 125 ml/min; Glucose 83 mg/dl (70-99); Potassium 4.2 mmol/L (3.5-5.1); Sodium 137 mmol/L (135-145); eGFR > 60.00
--- NOTE | 2024-08-30 10:15 | W.PN.HOSP.TC ---
Today's Communication/Plan
-
dc to home
Assessment / Plan
Assessment / Plan
Assessment:
Intractable Abdominal Pain (LUQ/chest as well)
Abnormal X-Ray with gaseous distention 20 cm segment of LUQ
Hx of IBS-C
hx of GERD
- CT negative
- regular diet, start Linzness 145 (has samples)
- OP GI f/u for anal manometry and endoscopy
Anxiety/Depression
Migraine Headaches
- Continue bupropion / duloxetine.
- Continue propranolol.
- Hold Nurtec.
Hx of Graves disease
- Continue propranolol.
Morbid Obesity due to excess calories
- Affects all aspects of care.
- Encourage healthy diet and increased exercise with goal of weight loss.
Mild anemia
- indices normal
DVT Prophylaxis: SCDs
Code Status: Full
More than 30 minutes spent in discharge including
Final examination of the patient
Summarizing hospital stay
Instructions for continuing care to all relevant caregivers
Preparation of discharge records, prescriptions, and referral forms
Total time spent (in minutes): 41
Anticipated Discharge: Today
Subjective/Interval History
-
Date of Service: August 30, 2024
denies any new complaints
passing copious gas
tolerating diet
Objective Data
-
Labs:
Laboratory Results
08/30/24
07:08
WBC 5.0
Hgb 12.4
Hct 37.8
Plt Count 208
Sodium 137
Potassium 4.2
Chloride 106
Carbon Dioxide 23
BUN 6 L
Creatinine 0.5 L
Glucose 83
Calcium 8.4
Vital Signs:
Vital Signs
Temp Pulse Resp BP Pulse Ox
98.1 F 83 18 139/91 98
08/30/24 07:40 08/30/24 07:40 08/30/24 07:40 08/30/24 07:40 08/30/24 07:40
I&O
08/29/24 08/30/24 08/31/24
06:59 06:59 06:59
Intake Total 2400 / 2400
Balance 2400 / 2400
Physical Exam
-
General: No Apparent Distress
Respiratory: Clear to Auscultation; Negative Wheezes
Cardiac: Regular Rhythm and S1/S2
GI: Soft
Genito-urinary: No Costovertebral Tender
Neuro: AO x 3
Hematologic / Lymphatic: No Lymphadenopathy
Psych: Calm
Data Reviewed
-
Total Time Spent with Patient (in minutes): 41
Labs: Labs Reviewed by me
--- NOTE | 2024-08-30 10:22 | W.DS.TRANS ---
DC Summary - Appellate Court Clerk
-
Discharge Instructions:
Discharge Diagnosis/Procedures gas, distention of bowel, negative CT
Diet Low Residue
Activity As tolerated
Instructions:
Stand-Alone Forms:
Changes to Home Medications: No
Discharge Medications:
DC Medications w/original date entered in [employer]
multivitamin 1 ea PO DAILY Supplement 11/04/17
bupropion HCl 150 mg 24 hr tablet, extended release (Wellbutrin XL) 300 mg PO DAILY depression/anxiety 08/25/22
duloxetine 60 mg capsule,delayed release 60 mg PO DAILY depression/anxiety 08/25/22
ibuprofen 200 mg tablet 200 - 400 mg PO PRN PRN pain 08/25/22
Propanolol 20 mg PO DAILY Blood Pressure 08/29/24
cetirizine 10 mg tablet (Zyrtec) 10 mg PO DAILY Allergies 08/29/24
rimegepant 75 mg disintegrating tablet (Nurtec ODT) 75 mg PO ONCE PRN migraines 08/29/24
Home Medication Changes
Pending Results: No
Total time spent discharging patient (in min): 41
[2024-08-30 11:00] VITALS: BP 138/88
--- NOTE | 2024-08-30 11:30 | CM ---
CM met with Jemima and provided her with Outpatient Observation notice. Form signed and a copy provided.
Jemima lives in an apartment with her 3 children; 2 are 'grown' and one is in school. She and her are , however he is supportive; he has already gotten groceries for Jemima and her children. 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
Jemima drove herself to the hospital after seeing her PCP yesterday (they advised her to go to the ED).
Jemima will drive herself home today.
Plan: Discharge to home with no identified needs.
== END 2024-08-30 13:32 | disposition home or self-care (01) ==
LOC: 4 EAST ACU 04:04
PROVIDERS: Nurse Practitioner Adult Health; Student in an Organized Health Care Education/Training Program; ADMITTING PHYSICIAN Hospitalist; ATTENDING PHYSICIAN Internal Medicine; CONSULT PHYSICIAN Student in an Organized Health Care Education/Training Program; EMERGENCY PHYSICIAN Student in an Organized Health Care Education/Training Program; FAMILY PHYSICIAN Student in an Organized Health Care Education/Training Program
DX: K63.89 Other specified diseases of intestine (principal); K58.1 Irritable bowel syndrome with constipation; R10.12 Left upper quadrant pain; M79.89 Other specified soft tissue disorders; K21.9 Gastro-esophageal reflux disease without esophagitis; G43.909 Migraine, unspecified, not intractable, without status migrainosus; F32.A Depression, unspecified; F41.9 Anxiety disorder, unspecified; D64.9 Anemia, unspecified; K42.9 Umbilical hernia without obstruction or gangrene; M51.379 Other intervertebral disc degeneration, lumbosacral region without mention of lumbar back pain or lower extremity pain; J98.11 Atelectasis; E05.00 Thyrotoxicosis with diffuse goiter without thyrotoxic crisis or storm; E66.01 Morbid (severe) obesity due to excess calories; Z68.41 Body mass index [BMI] 40.0-44.9, adult; Z80.0 Family history of malignant neoplasm of digestive organs; Z80.3 Family history of malignant neoplasm of breast
CPT/HCPCS: 74018; 74177; 80048; 80053; 82607; 82728; 82746; 83540; 83550; 83605; 84443; 84703; 85025; 85027; G0378; Q9967

== ENCOUNTER → 2024-09-03 12:34 | Outpatient (REF) | payer OTHER, SELFPAY | LOC: HWRAD 12:34 | PROVIDERS: ATTENDING PHYSICIAN Student in an Organized Health Care Education/Training Program | DX: R07.81 Pleurodynia (principal) | CPT/HCPCS: 71101 ==

== ENCOUNTER → 2024-10-08 06:54 | Outpatient (REF) | payer OTHER, SELFPAY | LOC: RAD 06:54 | PROVIDERS: ATTENDING PHYSICIAN Specialist; FAMILY PHYSICIAN Student in an Organized Health Care Education/Training Program | DX: R06.02 Shortness of breath (principal) | CPT/HCPCS: 71250 ==

== ENCOUNTER → 2024-10-13 11:04 | Outpatient (REF) | payer OTHER, SELFPAY | LOC: PAVMRI 11:04 | PROVIDERS: ATTENDING PHYSICIAN Student in an Organized Health Care Education/Training Program | DX: R07.81 Pleurodynia (principal) | CPT/HCPCS: 72146 ==

== ENCOUNTER → 2024-10-22 09:01 | Outpatient (REF) | payer OTHER, SELFPAY | LOC: MRI 3T 09:01 | PROVIDERS: ATTENDING PHYSICIAN Surgery; FAMILY PHYSICIAN Student in an Organized Health Care Education/Training Program | DX: R59.0 Localized enlarged lymph nodes (principal); Z91.89 Other specified personal risk factors, not elsewhere classified | CPT/HCPCS: 77049; A9585 ==

== ENCOUNTER → 2024-11-23 08:02 | Outpatient (REF) | payer OTHER, SELFPAY | LOC: HWRAD 08:02 | PROVIDERS: ATTENDING PHYSICIAN Student in an Organized Health Care Education/Training Program | DX: Z87.311 Personal history of (healed) other pathological fracture (principal) | CPT/HCPCS: 77080 ==

== ENCOUNTER → 2025-01-16 07:29 | Outpatient (REF) | payer OTHER, SELFPAY | LOC: HWWDC 07:29 | PROVIDERS: ATTENDING PHYSICIAN Surgery; FAMILY PHYSICIAN Student in an Organized Health Care Education/Training Program | DX: Z12.31 Encounter for screening mammogram for malignant neoplasm of breast (principal) | CPT/HCPCS: 77063; 77067 ==

== ENCOUNTER → 2025-02-14 08:16 | Outpatient (REF) | payer OTHER, SELFPAY | LOC: HWRAD 08:16 | PROVIDERS: ATTENDING PHYSICIAN Nurse Practitioner Family; FAMILY PHYSICIAN Student in an Organized Health Care Education/Training Program | DX: N92.0 Excessive and frequent menstruation with regular cycle (principal) | CPT/HCPCS: 76830; 76856 ==

== ENCOUNTER → 2025-08-09 13:46 | Outpatient (REF) | payer OTHER, SELFPAY | LOC: WDC 13:46 | PROVIDERS: ATTENDING PHYSICIAN Nurse Practitioner Adult Health; FAMILY PHYSICIAN Student in an Organized Health Care Education/Training Program | DX: N64.4 Mastodynia (principal) | CPT/HCPCS: 76642 ==

== ENCOUNTER → 2025-08-27 13:28 | Outpatient (REF) | payer OTHER, SELFPAY ==
[2025-08-27 14:46] LABS: Hematocrit 40.5 % (37.0-47.0); Hemoglobin 13.5 g/dL (12.0-16.0); Mean Corp Hgb Conc. 33.3 g/dL (33.0-37.0); Mean Corpuscular Volume 96.2 fL (81.0-99.0); Nucleated Red Blood Cells % 0 %; Platelet Count 247 10^3/uL (130-400); Red Cell Dist. Width 12.9 % (11.5-14.5)
[2025-08-27 15:09] LABS: ALT (SGPT) 19 U/L (0-35); AST (SGOT) 22 U/L (14-36); Albumin 4.3 g/dl (3.5-5.0); Alkaline Phosphatase 67 U/L (38-126); Blood Urea Nitrogen 15 mg/dl (7-17); Calcium 9.4 mg/dl (8.4-10.2); Carbon Dioxide 28 mmol/L (22-30); Chloride 100 mmol/L (98-107); Glucose 94 mg/dl (70-99); HDL Cholesterol 52 mg/dl; LDL Cholesterol, Calculated 115 mg/dl; Potassium 4.2 mmol/L (3.5-5.1); Sodium 135 mmol/L (135-145); Total Protein 7.3 g/dl (6.3-8.2); Very Low Density Lipoprotein 15 mg/dl (0-30); eGFR > 60.00
[2025-08-27 15:23] LABS: Free T3 3.46 pg/ml (2.77-5.27)
[2025-08-29 18:10] LABS: Thyroglobulin Antibodies <1.5 IU/mL (0.0-4.0)
== END ==
LOC: REG 13:28
PROVIDERS: ATTENDING PHYSICIAN Student in an Organized Health Care Education/Training Program
DX: F41.1 Generalized anxiety disorder (principal); E05.00 Thyrotoxicosis with diffuse goiter without thyrotoxic crisis or storm; Z00.00 Encounter for general adult medical examination without abnormal findings
CPT/HCPCS: 36415; 80053; 80061; 84443; 84481; 85025; 86376; 86800